=== PATIENT | male | born 1965 | race Asian ===

== ENCOUNTER 2023-06-17 07:41 | Emergency (ER) | payer BC ==
[2023-06-17 07:59] VITALS: BP 145/97; PULSE 72; RESP 18; TEMP 98.2; BMI 21.7
[2023-06-17] MEDS ORDERED: CEPHALEXIN MONOHYDRATE 500 MG CAPSULE (UD) ONE (08:27)
[2023-06-17] MEDS: CEPHALEXIN MONOHYDRATE 500 MG CAPSULE (UD) PO ONE (08:28)
== END 2023-06-17 08:52 | disposition home or self-care (01) ==
LOC: FER 07:41
DX: L02.511 Cutaneous abscess of right hand (principal)
CPT/HCPCS: 87070; 87205; 99283-25